=== PATIENT | female | born 1980 | race Caucasian/White ===

== ENCOUNTER 2017-03-12 10:52 | Day surgery (SDC) | payer BC ==
[~2017-03-12] VITALS: Ht 162.6 cm; Wt 133.4 kg
[~2017-03-12 10:52] MED LIST: MEPERIDINE HCL (50 MG/ML) 1 ML VIAL ONE; MIDAZOLAM HCL 1MG/1ML-2 ML VIAL ONE; ONDANSETRON HCL 4 MG/2 ML VIAL ONE; PROPOFOL 10 MG/ML 20 ML IV ONE; ROCURONIUM 10MG/ML 10ML VIAL IV ONE; fentaNYL CITRATE 100 MCG/2 ML VL ONE
[2017-03-12] MEDS ORDERED: SUCCINYLCHOLINE CHLORIDE 20 MG/ML 10ML VIAL IV ONE (10:53)
[2017-03-12] MEDS ORDERED: ceFAZolin 1GM/50ML 100 ML IV ONE (11:15)
[2017-03-12 11:34] LABS: Basophils # (auto) 0 uL; Mean Corpuscular Hemoglobin 25.5 pg (28.0-32.0); Neutrophils # (auto) 7.5 uL
[2017-03-12 11:36] LABS: Basophils % (auto) 0.2 % (0.0-2.0); Eosinophils # (auto) 0 uL; Eosinophils % (auto) 0.4 % (0.0-7.0); Hematocrit 39.5 % (36.0-46.0); Hemoglobin 12.8 g/dL (12.2-16.2); Lymphocytes # (auto) 3.2 uL; Lymphocytes % (auto) 27.9 % (10.0-50.0); Mean Corpuscular Hgb Conc. 32.3 g/dL (32.0-36.0); Monocytes # (auto) 0.6 uL; Monocytes % (auto) 5.6 % (0.0-12.0); Neutrophils % (auto) 65.9 % (37.0-80.0); Platelet Count (auto) 321 10^3/uL (140-450); Red Cell Distribution Width 14.6 % (11.8-14.3); White Blood Cell 11.4 10^3/uL (4.4-10.8)
[2017-03-12 11:49] LABS: INR 0.98 (0.9-1.15); Partial Thromboplastin Time 29.6 sec (22.64-33.71); Prothrombin Time 10.7 sec (9.37-12.3)
[2017-03-12 12:00] LABS: BUN/Creatinine Ratio 22.8; Calcium 8.5 mg/dL (8.5-10.1)
[2017-03-12] MEDS ORDERED: LIDOCAINE 1% HCL (LOCAL ANESTH.) INJ 20ML MDV ONE (12:14)
[2017-03-12] MEDS ORDERED: BUPIVACAINE 0.25% INJ 50ML VIAL ONE (12:15)
[2017-03-12] MEDS ORDERED: KETOROLAC TROMETH 30 MG/ML 1ML VIAL IV ONE (12:30)
[2017-03-12] MEDS ORDERED: HYDROmorphone HCL 2 MG/ML VL IV PRN (12:30)
[2017-03-12] MEDS ORDERED: METOCLOPRAMIDE HCL 5MG/ml INJ 2ml VIAL IV ONE (12:30)
[2017-03-12] MEDS ORDERED: PROPOFOL 10 MG/ML 20 ML IV ONE ×2 (12:43→13:16)
[2017-03-12] MEDS ORDERED: NEOSTIGMINE 1 MG/ML INJ (10mg/10ML VIAL) ONE (13:26)
[2017-03-12] MEDS ORDERED: KETOROLAC TROMETH 60MG/2ML VIAL IM ONE (13:26)
[2017-03-12] MEDS ORDERED: GLYCOPYRROLATE 0.2 MG/ML 1ML VIAL ONE (13:26)
[2017-03-12 15:15] VITALS: BP 121/78
== END 2017-03-12 15:15 | disposition home or self-care (01) ==
LOC: SUR 10:52
PROVIDERS: ATTEND Orthopaedic Surgery Adult Reconstructive Orthopaedic Surgery
DX: S52.571G Other intraarticular fracture of lower end of right radius, subsequent encounter for closed fracture with delayed healing (principal); X58.XXXD Exposure to other specified factors, subsequent encounter; D69.6 Thrombocytopenia, unspecified; E66.9 Obesity, unspecified; Z68.43 Body mass index [BMI] 50.0-59.9, adult; I10 Essential (primary) hypertension; E66.01 Morbid (severe) obesity due to excess calories
CPT/HCPCS: 25607; 36415; 73100; 76001; 80048; 84702; 85025; 85610; 85730; C1713; C1769; J0330; J0690; J1885; J2001; J2175; J2250; J2405; J2704; J3010; J3490